=== PATIENT | male | born 1955 | race African-American/Black ===

== ENCOUNTER 2025-05-07 08:32 | Outpatient (CLI) | payer MEDICARE | END 2025-05-07 08:33 | disposition home or self-care (01) | LOC: CSHMAMMO 08:32 | PROVIDERS: ATTEND Family Medicine | DX: N62 Hypertrophy of breast (principal); N63.10 Unspecified lump in the right breast, unspecified quadrant | CPT/HCPCS: 76642; 77066; G0279 ==